=== PATIENT | male | born 1950 | race Caucasian/White ===

== ENCOUNTER 2022-07-25 09:24 | Outpatient (CLI) | payer BC, MEDICARE | END 2022-07-25 09:25 | disposition home or self-care (01) | LOC: CSHCT 09:24 | PROVIDERS: ATTEND Student in an Organized Health Care Education/Training Program | DX: R91.8 Other nonspecific abnormal finding of lung field (principal); Z87.891 Personal history of nicotine dependence; R91.1 Solitary pulmonary nodule | CPT/HCPCS: 71271 ==

== ENCOUNTER 2024-05-22 08:12 | Outpatient (CLI) | payer MEDICARE ==
[~2024-05-22 08:12] MED LIST: Iopamidol 300 61% 100 ML VIAL FS ONE
== END 2024-05-22 08:13 | disposition home or self-care (01) ==
LOC: CSHCT 08:12
PROVIDERS: ATTEND Internal Medicine
DX: C34.12 Malignant neoplasm of upper lobe, left bronchus or lung (principal)
CPT/HCPCS: 36415; 71260; 82565

== ENCOUNTER 2024-08-09 10:32 | Outpatient (CLI) | payer MEDICARE ==
[~2024-08-09 10:32] MED LIST changes: -Iopamidol 300 61% 100 ML VIAL FS ONE; +Iopamidol 370 76% 100 ML VIAL ONE
== END 2024-08-09 10:33 | disposition home or self-care (01) ==
LOC: CSHCT 10:32
PROVIDERS: ATTEND Student in an Organized Health Care Education/Training Program
DX: R74.8 Abnormal levels of other serum enzymes (principal); C34.12 Malignant neoplasm of upper lobe, left bronchus or lung; N20.0 Calculus of kidney; I70.0 Atherosclerosis of aorta; K44.9 Diaphragmatic hernia without obstruction or gangrene; I51.9 Heart disease, unspecified
CPT/HCPCS: 74170

== ENCOUNTER 2025-05-21 07:33 | Outpatient (CLI) | payer MEDICARE ==
[2025-05-21 08:35] LABS: Estimated GFR - POC 80.0
[2025-05-21] MEDS ORDERED: Iopamidol 300 61% 100 ML VIAL FS ONE (08:50)
== END 2025-05-21 07:34 | disposition home or self-care (01) ==
LOC: CSHCT 07:33
PROVIDERS: ATTEND Internal Medicine
DX: C34.12 Malignant neoplasm of upper lobe, left bronchus or lung (principal); Z98.890 Other specified postprocedural states; N20.0 Calculus of kidney
CPT/HCPCS: 71260; 82565